=== PATIENT | female | born 1995 | race Caucasian/White ===

== ENCOUNTER 2017-10-01 18:49 | Inpatient (IN) | payer BC, OTHER ==
[2017-10-01] MEDS ORDERED: STADOL 2 MG IV PRN (18:54)
[2017-10-01] MEDS ORDERED: Phenergan 25 MG INJ IV PRN (18:54)
[2017-10-01] MEDS ORDERED: Ephedrine Sulfate 50 MG/ML IV PRN (18:54)
[2017-10-01] MEDS ORDERED: Nubain 10 MG/ML IV PRN (18:54)
[2017-10-01] MEDS ORDERED: Zofran 4 MG/2 ML VIAL IV PRN (18:54)
[2017-10-01] MEDS ORDERED: Lactated Ringers 1,000 ML IV ONE (18:54)
[2017-10-01] MEDS ORDERED: XYLOCAINE 1% HCL 20 ML MDV IJ PRN (18:54)
[2017-10-01] MEDS ORDERED: OB EPIDURAL NAROPIN/SUFENTANIL IN NACL EPIDURAL PRN (18:54)
[2017-10-01] MEDS ORDERED: TYLENOL EXTRA STRENGTH 500 MG PO PRN ×2 (18:54→20:07)
[2017-10-01] MEDS ORDERED: Lactated Ringers 2,000 ML IV ONE (18:55)
[2017-10-01] MEDS ORDERED: Lactated Ringers 1,000 ML IV SCH (19:00)
[2017-10-01] MEDS ORDERED: PITOCIN 30 UNITS/ LR 500 ML 500 ML IV SCH (19:00)
[2017-10-01 19:19] LABS: BASOPHIL % 0.1 % (0.0-0.4); Basophil (Absolute #) 0.01 (0-0.4); Eosinophil % 0.1 % (0.00-5.0); Eosinophil (Absolute #) 0.01 (0-0.5); Granulocyte Absolute (ANC) 7.43 (1.4-6.9); Granulocytes % 74.8 % (36.0-66.0); Hematocrit 32.2 % (35-47); Hemoglobin 10.1 gm/dl (12.0-16.0); Lymphocytes % 19.1 % (24.0-44.0); Mean Cell Volume 77.4 fl (78-100); Mean Corpuscular Hgb Concent. 31.4 g/dl (32-36); Mean Platelet Volume 11.7 fl (6-9.5); Monocyte (Absolute #) 0.59 (0.0-1.3); Monocytes % 5.9 % (0.0-12.0); Platelet Count 129 K/mm3 (150-450); Red Blood Count 4.16 M/mm3 (4.1-5.4); Red Cell Distribution Width 14.3 % (11.5-14.0); White Blood Count 9.9 K/mm3 (4.0-10.5)
[2017-10-01 19:28] LABS: Mean Corpuscular Hemoglobin 24.2 pg (26-32)
[2017-10-01] MEDS ORDERED: CORTISONE 1% CREAM TP PRN (20:07)
[2017-10-01] MEDS ORDERED: Mylicon 80MG PO PRN (20:07)
[2017-10-01] MEDS ORDERED: Ambien 10 MG PO PRN (20:07)
[2017-10-01] MEDS ORDERED: TUCKS TP PRN (20:07)
[2017-10-01] MEDS ORDERED: Anucort-HC SUPPOSITORY PR PRN (20:07)
[2017-10-01] MEDS ORDERED: Dulcolax 10 MG SUPP PR PRN (20:07)
[2017-10-01] MEDS ORDERED: LANSINOH 40 GM TOP PRN (20:07)
[2017-10-01] MEDS ORDERED: Dermoplast Spray TP PRN (20:07)
[2017-10-01] MEDS: MOTRIN 400 MG PO PRN (20:45)
[2017-10-01] MEDS: Colace 100 MG PO SCH (22:42)
[2017-10-02] MEDS: NORCO 5/325 MG PO PRN ×3 (01:11→11:53)
[2017-10-02] MEDS: MOTRIN 400 MG PO PRN (03:17)
[2017-10-02 05:49] LABS: BASOPHIL % 0.1 % (0.0-0.4); Basophil (Absolute #) 0.01 (0-0.4); Eosinophil % 0.1 % (0.00-5.0); Eosinophil (Absolute #) 0.01 (0-0.5); Granulocytes % 69.2 % (36.0-66.0); Hematocrit 26.5 % (35-47); Hemoglobin 8.2 gm/dl (12.0-16.0); Lymphocyte (Absolute #) 2.15 (1.0-4.6); Lymphocytes % 24.4 % (24.0-44.0); Mean Cell Volume 77.7 fl (78-100); Mean Corpuscular Hgb Concent. 30.9 g/dl (32-36); Mean Platelet Volume 12.3 fl (6-9.5); Monocyte (Absolute #) 0.55 (0.0-1.3); Monocytes % 6.2 % (0.0-12.0); Platelet Count 122 K/mm3 (150-450); Red Blood Count 3.41 M/mm3 (4.1-5.4); Red Cell Distribution Width 14.4 % (11.5-14.0); White Blood Count 8.8 K/mm3 (4.0-10.5)
[2017-10-02 07:45] VITALS: PULSE 80
--- NOTE | 2017-10-02 08:32 | PCM.NOTE ---
Date and Time: 10/02/17830 Subjective Assessment: doing well, mild lochia. ever po and has no complaints, pain controlled Objective Exam General Appearance: no apparent distress, alert Skin Exam: normal color, warm, dry Respiratory Exam: normal breath sounds, lungs clear, No respiratory distress Cardiovascular Exam: regular rate/rhythm, normal heart sounds Gastrointestinal/Abdomen Exam: soft, other (fundus firm), No tenderness, No mass Extremity Exam: normal inspection, normal range of motion OBJECTIVE DATA Vital Signs: Vital Signs - 24 hr Temp Pulse Resp BP BP 10/02/17 04:00 97.9 F 80 20 111/70 10/02/17 02:00 97.9 F 88 18 112/66 10/02/17 00:00 98.2 F 71 18 128/67 10/01/17 23:00 98.5 F 67 18 108/54 10/01/17 22:20 97.8 F 84 20 106/53 10/01/17 21:36 97.9 F 88 20 114/59 10/01/17 20:35 98.5 F 93 H 20 122/64 10/01/17 20:20 98.5 F 90 20 119/61 10/01/17 20:10 98.5 F 106 H 18 116/59 10/01/17 19:30 90 20 121/64 10/01/17 19:00 98.5 F 67 18 120/65 120/65 Pain Assessment - Last Documented Pain Intensity [Lower Anterior 7 Medial] Pain Intensity 4 Pain Scale Used 0-10 Pain Scale Intake and Output: Intake & Output 09/29/17 09/30/17 10/01/17 10/02/17 11:59 11:59 11:59 11:59 Intake Total 2975 Balance 2975 Weight 80 kg Lab Results: Lab Results-Last 24 Hours 10/01/17 10/02/17 Range/Units 19:17 05:01 WBC 9.9 8.8 (4.0-10.5) K/mm3 RBC 4.16 3.41 L (4.1-5.4) M/mm3 Hgb 10.1 L 8.2 L (12.0-16.0) gm/dl Hct 32.2 L 26.5 L (35-47) % MCV 77.4 L 77.7 L (78-100) fl MCH 24.2 L 24.0 L (26-32) pg MCHC 31.4 L 30.9 L (32-36) g/dl RDW 14.3 H 14.4 H (11.5-14.0) % Plt Count 129 L 122 L (150-450) K/mm3 MPV 11.7 H 12.3 H (6-9.5) fl Gran % 74.8 H 69.2 H (36.0-66.0) % Lymphocytes % 19.1 L 24.4 (24.0-44.0) % Monocytes % 5.9 6.2 (0.0-12.0) % Eosinophils % 0.1 0.1 (0.00-5.0) % Basophils % 0.1 0.1 (0.0-0.4) % Basophils # 0.01 0.01 (0-0.4) Multi-Disciplinary Progress Notes: Multi-Disciplinary Progress Notes 10/02/17 03:33 Respiratory Note by Azar Pro REVISITING AND REASSESSING PT SHOWED AN SPOT ON RA OF 100%, HR OF 124 AND RR OF 40. PT BS WERE CLEAR AND PRESENT IN ALL OSPINA ANTERIOR AND POSTERIOR. Initialized on 10/02/17 03:33 - END OF NOTE 10/02/17 00:44 Respiratory Note by Azar Pro WENT TO RE ASSESS PT AT 0035 AND HR WAS 146, SATS ON RA WERE 98% AND RR WAS 44. OBSERVED PT BRIEFLY W/ A PACIFIER AND A BOTTLE IN HIS MOUTH AND HE MAINTAINED SATS. I REQUESTED FOR NURSING TO LEAVE PULSE OX ON SO THAT WE CAN OBSERVE WHAT PT DOES WHEN HE EATS CONTINUOUSLY. I DID NOT AGAIN OBSERVE WHAT APPEARED LIKE "PURSED LIP" BREATHING OR SNIFFING POSITION BUT PT DID SNEEZE A CPL OF TIMES. I WILL GO AND RE ASSESS AGAIN IN AN HOUR AND NURSING IS TO CALL FOR ANY CONCERNS. Initialized on 10/02/17 00:44 - END OF NOTE 10/02/17 00:43 Respiratory Note by Azar Pro RT CALLED TO TO ASSESS BABY. PT HAD A HR OF 135, RR OF 36, AND O2 SAT OF 100 %. LUNGS SOUNDED CLEAR AT THIS TIME. NURSING OBSERVED THAT PT AT TIMES APPEARED TO POSSIBLY BE PURSED LIP BREATHING OR HAD HIS HEAD IN A "SNIFFING" POSITION. I OBSERVED THIS WELL BUT IT DID NOT LAST VERY LONG AND AT THIS TIME DO NOT BELIEVE IT TO BE A CONCERN. I INFORMED NURSING THAT I WLD COME BACK IN 15 MINUTES TO ASSESS AGAIN. Initialized on 10/02/17 00:43 - END OF NOTE 10/01/17 23:45 Respiratory Note by Azar Pro RT CALLED TO BEDSIDE FOR QUICK DELIVERY. Initialized on 10/01/17 23:45 - END OF NOTE Assessment/Plan (1) Vaginal delivery Current Visit: Yes Status: Acute Assessment & Plan: routine pp care Code(s): O80 - ENCOUNTER FOR FULL-TERM UNCOMPLICATED DELIVERY
[2017-10-02] MEDS ORDERED: Adacel Vial IM ONE (09:00)
[2017-10-02] MEDS ORDERED: M-M-R II Vaccine With Diluent SQ ONE (09:00)
[2017-10-02] MEDS ORDERED: FERREX 150 PO SCH (10:00)
--- NOTE | 2017-10-02 11:26 | PCM.DS ---
Discharge Summary Date of Admission: 10/01/17 18:49 Admitting Physician: BAILEY TOVAR Consults: Consults on Case 10/01/17 18:58 Notify Anesthesia Provider PRN Primary Care Provider: BAILEY TOVAR Allergies Allergies No Known Drug Allergies Allergy (Verified 10/01/17 22:46) Hospital Summary - Hospital Course Hospital Course: 22yo arrived in spontaneous labor at 39wks by 30 week ultrasound. had late entry to care at 30 wks, and was treated for chlamydia on 07/30/17. had no problems at delivery, no repair. doing well, baby is being transferred for respiratory issues so mom discharging PPD #1, has mild lochia and feels well. - Vitals & Intake/Output Vital Signs: Vital Signs Temperature 97.9 F 10/02/17 04:00 Pulse Rate 80 10/02/17 04:00 Respiratory Rate 20 10/02/17 04:00 Blood Pressure 111/70 10/02/17 04:00 O2 Sat by Pulse Oximetry Intake & Output: Intake & Output 09/29/17 09/30/17 10/01/17 10/02/17 11:59 11:59 11:59 11:59 Intake Total 2975 Balance 2975 Weight 80 kg - Lab Result Diagrams: 10/02/17 05:01 Lab Results-Last 24 Hrs: Lab Results-Last 24 Hours 10/01/17 10/02/17 Range/Units 19:17 05:01 WBC 9.9 8.8 (4.0-10.5) K/mm3 RBC 4.16 3.41 L (4.1-5.4) M/mm3 Hgb 10.1 L 8.2 L (12.0-16.0) gm/dl Hct 32.2 L 26.5 L (35-47) % MCV 77.4 L 77.7 L (78-100) fl MCH 24.2 L 24.0 L (26-32) pg MCHC 31.4 L 30.9 L (32-36) g/dl RDW 14.3 H 14.4 H (11.5-14.0) % Plt Count 129 L 122 L (150-450) K/mm3 MPV 11.7 H 12.3 H (6-9.5) fl Gran % 74.8 H 69.2 H (36.0-66.0) % Lymphocytes % 19.1 L 24.4 (24.0-44.0) % Monocytes % 5.9 6.2 (0.0-12.0) % Eosinophils % 0.1 0.1 (0.00-5.0) % Basophils % 0.1 0.1 (0.0-0.4) % Basophils # 0.01 0.01 (0-0.4) Discharge Exam General Appearance: no apparent distress, alert Skin Exam: normal color, warm, dry Respiratory Exam: normal breath sounds, lungs clear, No respiratory distress Cardiovascular Exam: regular rate/rhythm, normal heart sounds Gastrointestinal/Abdomen Exam: soft Extremity Exam: normal inspection, normal range of motion Final Diagnosis/Problem List - Final Discharge Diagnosis/Problem (1) Vaginal delivery Current Visit: Yes Status: Acute - Discharge Disposition: Home, Self-Care Condition: Stable Prescriptions: [place] Polysaccharides Complex [Ferrex 150] 150 mg PO DAILY #30 capsule Continue Vits W-Ca,Fe,FA(<1Mg) [] 1 each PO DAILY Follow up with: BAILEY TOVAR MD [Primary Care Provider] - 1 Week
[2017-10-02] MEDS: Colace 100 MG PO SCH (11:54)
[2017-10-02 13:33] LABS: Amphetamine,Urine NEG. (NEGATIVE); Barbiturate,Urine NEG. (NEGATIVE); Benzodiazepine,Urine NEG. (NEGATIVE); Cocaine,Urine NEG. (NEGATIVE); Methadone,Urine NEG. (NEGATIVE); Opiate,Urine POS. (NEGATIVE); PCP,Urine NEG. (NEGATIVE); THC,Urine NEG. (NEGATIVE)
[2017-10-02 14:13] VITALS: BP 121/59
== END 2017-10-02 17:45 | disposition home or self-care (01) | DRG 775 ==
LOC: OB 18:49
PROVIDERS: ADMIT Family Medicine; ATTEND Family Medicine
PROC: 10E0XZZ Delivery of Products of Conception, External Approach (ICD-10-PCS; principal; 2017-10-01)
DX: O80 Encounter for full-term uncomplicated delivery (principal); Z3A.39 39 weeks gestation of pregnancy; Z37.0 Single live birth
CPT/HCPCS: 36415; 80307; 85025; 90707; 90715; 94799; G0378; J2590; J2795; A9270-GY

== ENCOUNTER 2018-07-26 19:20 | Emergency (ER) | payer OTHER ==
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
[2018-07-26] MEDS ORDERED: Adacel Vial IM ONE (19:37)
[2018-07-26 19:53] LABS: BASOPHIL % 0.1 % (0.0-0.4); Basophil (Absolute #) 0.01 (0-0.4); Eosinophil % 1.5 % (0.00-5.0); Eosinophil (Absolute #) 0.11 (0-0.5); Granulocyte Absolute (ANC) 4.51 (1.4-6.9); Granulocytes % 62.1 % (36.0-66.0); Hematocrit 36.4 % (35-47); Hemoglobin 11.9 gm/dl (12.0-16.0); Lymphocyte (Absolute #) 2.17 (1.0-4.6); Lymphocytes % 29.8 % (24.0-44.0); Mean Cell Volume 82.9 fl (78-100); Mean Corpuscular Hemoglobin 27.1 pg (26-32); Mean Corpuscular Hgb Concent. 32.7 g/dl (32-36); Monocyte (Absolute #) 0.47 (0.0-1.3); Monocytes % 6.5 % (0.0-12.0); Platelet Count 137 K/mm3 (150-450); Red Blood Count 4.39 M/mm3 (4.1-5.4); Red Cell Distribution Width 14.3 % (11.5-14.0); White Blood Count 7.3 K/mm3 (4.0-10.5)
[2018-07-26 20:10] LABS: ANION GAP 13.9 MEQ/L (5-15); BLOOD UREA NITROGEN 21 mg/dL (7-17); CHLORIDE 103 mmol/L (98-107); Calcium 9.8 mg/dL (8.4-10.2); Carbon Dioxide 26 mmol/L (22-30); Creatinine 1 0.64 mg/dL (0.52-1.04); Glucose 95 mg/dL (74-106); Potassium 3.8 mmol/L (3.5-5.1); SODIUM 139 mmol/L (137-145)
[2018-07-26 20:53] VITALS: BP 119/72; PULSE 95
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
[2018-07-26] MEDS ORDERED: Fluor-I-Strip/Ful-Flo OP ONE ×2 (22:10→22:26)
[2018-07-26] MEDS ORDERED: Eye-Stream Solution ONE (22:10)
[2018-07-26] MEDS ORDERED: TETRACAINE 0.5% STERI-UNIT SOL OP ONE (22:10)
[2018-07-26] MEDS ORDERED: TETRACAINE 0.5% STERI-UNIT SOL OP STA (22:25)
[2018-07-26] MEDS ORDERED: Eye-Stream Solution OP ONE (22:26)
[2018-07-26] MEDS ORDERED: Erythromycin 1 GM OP STA (22:27)
[2018-07-26] MEDS ORDERED: Erythromycin 1 GM ONE (22:28)
[2018-07-26] MEDS ORDERED: NORCO 5/325 MG PO ONE (22:33)
[2018-07-26] MEDS ORDERED: Augmentin 875-125 Tablet PO ONE (22:33)
[2018-07-26 22:38] VITALS: O2SAT 99
[2018-07-26] MEDS ORDERED: Augmentin 875-125 Tablet ONE (22:41)
[2018-07-26] MEDS ORDERED: NORCO 5/325 MG ONE (22:42)
== END 2018-07-26 23:04 | disposition home or self-care (01) ==
LOC: ED 19:20
DX: S16.1XXA Strain of muscle, fascia and tendon at neck level, initial encounter (principal); S09.90XA Unspecified injury of head, initial encounter; S00.81XA Abrasion of other part of head, initial encounter; S61.441A Puncture wound with foreign body of right hand, initial encounter; R42 Dizziness and giddiness; S05.02XA Injury of conjunctiva and corneal abrasion without foreign body, left eye, initial encounter; S05.01XA Injury of conjunctiva and corneal abrasion without foreign body, right eye, initial encounter; V89.2XXA Person injured in unspecified motor-vehicle accident, traffic, initial encounter
CPT/HCPCS: 36415; 70450; 70486; 72125; 73130; 80048; 85025; 99285; A9270-GY